=== PATIENT | male | born 2000 | race Caucasian/White ===

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

== ENCOUNTER 2024-06-18 17:21 | Emergency (ER) | payer MEDICAID, OTHER ==
[~2024-06-18] VITALS: Ht 182.9 cm; Wt 90.0 kg
[2024-06-18 18:10] LABS: Basophils # (auto) 0.1 10 ^3/uL (0-0.2); Basophils % (auto) 0.5 % (0.0-2.0); Eosinophils # (auto) 0.1 10 ^3/uL (0-0.8); Eosinophils % (auto) 1.1 % (0.0-7.0); Hematocrit 49.2 % (41.0-53.0); Hemoglobin 17.5 g/dL (13.5-17.5); Lymphocytes # (auto) 3.4 10 ^3/uL (0.4-5.4); Lymphocytes % (auto) 28.1 % (10.0-50.0); Mean Corpuscular Hemoglobin 31.1 pg (28.0-32.0); Mean Corpuscular Hgb Conc. 35.5 g/dL (32.0-36.0); Mean Corpuscular Volume 87.5 fL (80.0-100.0); Monocytes % (auto) 8.5 % (0.0-12.0); Neutrophils # (auto) 7.5 10 ^3/uL (1.6-8.6); Neutrophils % (auto) 61.8 % (37.0-80.0); Nucleated Red Blood Cells % 1.1 %; Platelet Count (auto) 407 10^3/uL (140-450); Red Blood Cells 5.63 10^6/uL (4.5-5.90); Red Cell Distribution Width 12.7 % (11.8-14.3); White Blood Cell 12.1 10^3/uL (4.4-10.8)
[2024-06-18 18:21] LABS: Sodium 139 mmol/L (136-145)
[2024-06-18 18:22] LABS: Anion Gap 13 (5-15); Calcium 10.1 mg/dL (8.7-10.4)
[2024-06-18 18:28] LABS: BUN/Creatinine Ratio 9.8 (10.0-20.0); Blood Urea Nitrogen 11 mg/dL (9-23)
[2024-06-18 18:31] LABS: Carbon Dioxide 18 mmol/L (20-31); Chloride 108 mmol/L (98-107); Glucose 130 mg/dL (74-106); Potassium 3.3 mmol/L (3.5-5.1)
[2024-06-18] MEDS: SODIUM CHLORIDE 0.9% 2,000 ML IV ONE (18:53)
[2024-06-18] MEDS: LORazepam 2MG/ML-1ML VIAL IV ONE (18:53)
[2024-06-18] MEDS: KETOROLAC TROMETH 30 MG/ML 1ML VIAL IV ONE (18:54)
--- NOTE | 2024-06-18 18:54 | DVH ---
EXAM: XR Chest, 1 View CLINICAL INDICATION: cp TECHNIQUE: Frontal view of the chest. COMPARISON: None FINDINGS: LUNGS AND PLEURAL SPACES: Unremarkable. No consolidation. No pneumothorax. HEART: Unremarkable. No cardiomegaly. MEDIASTINUM: Unremarkable. Normal mediastinal contour. BONES/JOINTS: Unremarkable. No acute fracture. OTHER FINDINGS: . None. IMPRESSION: No acute cardiopulmonary process.
[2024-06-18 18:56] VITALS: PULSE 105; RESP 18; O2SAT 99
--- NOTE | 2024-06-18 19:55 | ED.PDOC ---
HPI Comments 23-year-old male brought in by family complaining of chest pain that started 4 hours ago while he was sitting in class. Patient states the pain is pressure- like, localized to the left parasternal area, no particular exacerbating or alleviating factors, initially severe, now moderate. He denies any shortness a breath, nausea, vomiting, diaphoresis or edema. Patient admits to using methamphetamine yesterday. Chief Complaint: Chest Pain Time Seen by MD: 19:50 Primary Care Provider: BEULAH Gautam Notes: Nurses Notes, Medications, Allergies Allergies: Coded Allergies: NO KNOWN ALLERGIES (Unverified , 07/01/12) Home Meds No Active Prescriptions or Reported Meds Information Source: Patient Mode of Arrival: Ambulatory Severity: Moderate Timing: Hours Duration: Since onset, Hours Prehospital treatment: None Location: Chest (L) Radiation: No Radiation Quality: Pressure Onset: At Rest Cardiac Risk Factors: Drugs PE Risk Factors: None History of: None Associated Signs and Symptoms: Palpitations Past Medical History PAST MEDICAL HISTORY: Denies Surgical History: Denies all surgeries Family History Family History: Reviewed,noncontributory to illness, Unknown Social History Smoker: Non-Smoker Alcohol: Denies ETOH Use Drugs: Methamphetamine (used yesterday 06/17/24) Lives In: Home Constitutional: denies: chills, diaphoresis, fatigue, fever, malaise, sweats, weakness, others EENTM: denies: blurred vision, double vision, ear bleeding, ear discharge, ear drainage, ear pain, ear ringing, eye pain, eye redness, hearing loss, mouth pain, mouth swelling, nasal discharge, nose bleeding, nose congestion, nose pain, photophobia, tearing, throat pain, throat swelling, voice changes, others Respiratory: denies: cough, hemoptysis, orthopnea, SOB at rest, shortness of breath, SOB with excertion, stridor, wheezing, others Cardiovascular: reports: chest pain, palpitations; denies: dizzy spells, diaphoresis, Dyspnea on exertion, edema, irregular heart beat, left arm pain, lightheadedness, PND, syncope, others Gastrointestinal: denies: abdomen distended, abdominal pain, blood streaked bowels, constipated, diarrhea, dysphagia, difficulty swallowing, hematemesis, melena, nausea, poor appetite, poor fluid intake, rectal bleeding, rectal pain, vomiting, others Genitourinary: denies: burning, dysuria, flank pain, frequency, hematuria, incontinence, penile discharge, penile sore, pain, testicle pain, testicle swelling, urgency, others Neurological: denies: dizziness, fainting, headache, left sided numbness, left sided weakness, numbness, paresthesia, pre-existing deficit, right sided numbness, right sided weakness, seizure, speech problems, tingling, tremors, weakness, others Musculoskeletal: denies: back pain, gout, joint pain, joint swelling, muscle pain, muscle stiffness, neck pain, others Integumetry: denies: bruises, change in color, change in hair/nails, dryness, laceration, lesions, lumps, rash, wounds, others Allergic/Immunocompromised: denies: Difficulty Healing, Frequent Infections, Hives, Itching, others Hematologic/Lymphatic: denies: anemia, blood clots, easy bleeding, easy bruising, swollen glands, others Endocrine: denies: excessive hunger, excessive sweating, excessive thirst, excessive urination, flushing, intolerance to cold, intolerance to heat, unexplained weight gain, unexplained weight loss, others Psychiatric: denies: anxiety, bipolar disorder, depression, hopeless, panic disorder, schizophrenia, sleepless, suicidal, others All Other Systems: Reviewed and Negative Physical Exam General Appearance: Mild Distress HEENT: Other (Pupils and face symmetric. Moist mucous membranes.) Neck: Full Range of Motion, Normal Inspection Respiratory: Lungs Clear, No Accessory Muscle Use, No Respiratory Distress, Normal Breath Sounds Cardiovascular: No Edema, No JVD, Tachycardia Breast Exam: Deferred Gastrointestinal: Non Tender, Soft Genitalia: Deferred Pelvic: Deferred Rectal: Deferred Extremities: Normal inspection, Normal range of motion, Non-tender, No pedal edema Musculoskeletal : Apperance: Normal Neurologic: Alert (Oriented x4), Normal Affect, Other (Ambulatory without difficulty. Anxious.) Cerebellar Function: NOT DONE Reflexes: NOT DONE Skin: Dry, Normal Color, Warm Lymphatic: NOT DONE EKG EKG : Comments Sinus tach, rate 134, normal intervals, normal axis, normal QRS, nonspecific T changes. Was a procedure done? Was a procedure done?: No CP Differential Dx Differential Diagnosis: Angina, Anxiety / Panic Attack, Electrolyte Disorder, Heart Failure, Hyperventilation, [place] Differential Diagnosis: Aortic dissection, Chest Wall Pain, Esophageal re flux/spasm, Gastritis, Pericarditis, Pneumonia, Pneumothorax X-Ray, Labs, Meds, VS Vital Signs Date Time Temp Pulse Resp B/P (MAP) Pulse Ox O2 Delivery O2 Flow Rate FiO2 06/18/24 20:54 97.9 103 18 141/82 (101) 99 97.9 06/18/24 18:56 105 18 99 Room Air* 0 21 06/18/24 18:56 98.2 105 18 128/78 (95) 99 98.2 06/18/24 17:25 134 06/18/24 17:21 98.0 112 15 131/80 (97) 99 98.0 Lab Test 06/18/24 18:45 06/18/24 18:17 06/18/24 17:37 06/18/24 17:31 Range/Units Urine Color Yellow Yellow Urine Clarity Clear Clear Urine pH 7.0 5.0-9.0 Urine Specific [place] 1.022 1.001-1.035 Urine Protein Negative Negative Urine Ketones 2+ H Negative Urine Blood Negative Negative /uL Urine Nitrite Negative Negative Urine Bilirubin Negative Negative Urine Urobilinogen Normal Negative mg/dL Urine Leukocyte Esterase Negative Negative /uL Urine RBC <1 0 - 3 /hpf Urine Microscopic WBC 1 0-3 /HPF Urine Squamous Epithelial Cells None seen <5 /hpf Urine Transitional Epithelial Cells Few <2 /hpf Urine Bacteria None seen None Seen /hpf Urine Mucus Few None Seen Urine Glucose Normal Normal mg/dL Troponin I High Sensitivity 4 3 L </=54 ng/L White Blood Count 12.1 H 4.4-10.8 10^3/uL Red Blood Count 5.63 4.5-5.90 10^6/uL Hemoglobin 17.5 13.5-17.5 g/dL Hematocrit 49.2 41.0-53.0 % Mean Corpuscular Volume 87.5 80.0-100.0 fL Mean Corpuscular Hemoglobin 31.1 28.0-32.0 pg Mean Corpuscular Hemoglobin Concent 35.5 32.0-36.0 g/dL Red Cell Distribution Width 12.7 11.8-14.3 % Platelet Count 407 140-450 10^3/uL Mean Platelet Volume 7.7 6.9-10.8 fL Neutrophils (%) (Auto) 61.8 37.0-80.0 % Lymphocytes (%) (Auto) 28.1 10.0-50.0 % Monocytes (%) (Auto) 8.5 0.0-12.0 % Eosinophils (%) (Auto) 1.1 0.0-7.0 % Basophils (%) (Auto) 0.5 0.0-2.0 % Neutrophils # (Auto) 7.5 1.6-8.6 10 ^3/uL Lymphocytes # (Auto) 3.4 0.4-5.4 10 ^3/uL Monocytes # (Auto) 1.0 0-1.3 10 ^3/uL Eosinophils # (Auto) 0.1 0-0.8 10 ^3/uL Basophils # (Auto) 0.1 0-0.2 10 ^3/uL Nucleated Red Blood Cells 1.1 % Sodium Level 139 136-145 mmol/L Potassium Level 3.3 L 3.5-5.1 mmol/L Chloride Level 108 H 98-107 mmol/L Carbon Dioxide Level 18 L 20-31 mmol/L Anion Gap 13 5-15 Blood Urea Nitrogen 11 9-23 mg/dL Creatinine 1.12 0.700-1.30 mg/dL Glomerular Filtration Rate Calc 95 >90 mL/min BUN/Creatinine Ratio 9.8 L 10.0-20.0 Serum Glucose 130 H 74-106 mg/dL Calcium Level 10.1 8.7-10.4 mg/dL B-Type Natriuretic Peptide 2.10 0-100 pg/mL POC Glucose 134 H 70-106 mg/dl Current Medications Medications (Trade) Dose Ordered Sig/Terrance Route Start Time Stop Time Status Last Admin Sodium Chloride 2,000 ml @ 1,000 mls/hr Q2H ONCE IV 06/18/24 17:30 06/18/24 19:29 DC 06/18/24 18:53 Ketorolac Tromethamine (Toradol Injection) 30 mg ONCE ONCE IV 06/18/24 17:30 06/18/24 17:31 DC 06/18/24 18:54 Lorazepam (Ativan Inj) 1 mg ONCE ONCE IV 06/18/24 17:30 06/18/24 17:31 DC 06/18/24 18:53 Potassium Bicarbonate (Klor-Con/Ef) 50 meq ONCE ONCE PO 06/18/24 23:00 06/18/24 23:13 DC 06/18/24 23:26 PROCEDURE(s): CXRP - CHEST PORTABLE REASON: cp ORDER NUMBER(s): [id number], ACCESSION NUMBER(s): [id number] EXAM: XR Chest, 1 View CLINICAL INDICATION: cp TECHNIQUE: Frontal view of the chest. COMPARISON: None FINDINGS: LUNGS AND PLEURAL SPACES: Unremarkable. No consolidation. No pneumothorax. HEART: Unremarkable. No cardiomegaly. MEDIASTINUM: Unremarkable. Normal mediastinal contour. BONES/JOINTS: Unremarkable. No acute fracture. OTHER FINDINGS: . None. IMPRESSION: No acute cardiopulmonary process. X-Ray, Labs, Meds, VS Comment 23-year-old male with no significant past medical history presenting with chest pain and tachycardia after using meth yesterday Vitals remarkable for heart rate 112 Exam remarkable for tachycardia and anxiety Rhythm strip independently interpreted by me: Sinus tach, rate 134, no ectopy. Chest x-ray unremarkable CBC remarkable for WBC 12.1, basic metabolic panel remarkable for potassium 3.3, CO2 18, troponin negative x2, BNP normal, UA no infection Patient treated with the following in the ED: 2 L 0.9 normal saline IV bolus, Toradol 30 mg IV, Ativan 1 mg IV, potassium 50 mEq p.o. On re-evaluation, patient states pain has resolved. Heart rate is 108, other vitals were stable. Hospitalization was considered, however patient had rapid improvement of symptoms with treatment in the ED, and I no longer feel hospitalization is necessary. Patient now appears stable for discharge with close outpatient follow-up with his primary physician. Patient advised to stop using methamphetamine. Time of 1ST Reevaluation: 20:20 Reevaluation 1ST: Unchanged Time of 2ND Reevaluation: 22:55 Reevaluation 2ND: Improved Patient Education/Counseling: Diagnosis, Treatment, Prognosis Family Education/Counseling: No Family Present Departure 1 Departure Time of Disposition: 22:55 Impression: Primary Impression: Chest pain with low risk for cardiac etiology Additional Impressions: Tachycardia, unspecified Methamphetamine abuse Methamphetamine use Disposition: HOME / SELF CARE / HOMELESS Condition: Stable Additional Instructions: Your blood tests, including screening test for heart attack and heart failure were unremarkable except for low potassium. We have corrected this in the ER. Your chest x-ray was normal. Your EKG showed a rapid heart rate, which is poss ibly due to recent methamphetamine use. Follow-up with your primary doctor in 1-2 days for referral to a manager neonatal for further evaluation. Return to ER for persistent or worsening symptoms. e-Prescriptions No Active Prescriptions or Reported Meds Discharged With: Relative Critical Care Note Critical Care Time?: No Stability Stability form required: No Heart Score Heart Score: Heart Score Response (Comments) Value History Slightly Suspicious 0 EKG Repolarization Disturb 1 Age <45 0 Risk Factors No known risk factors 0 Troponin Normal limit 0 Total 1 I personally scribed for SEBASTIAN AGUILAR MD ([email or web address]) on 06/18/24 at 19:55. Electronically submitted by Enio Fountain ([email or web address]). I personally scribed for SEBASTIAN AGUILAR MD ([email or web address]) on 06/18/24 at 19:56. Electronically submitted by Enio Fountain ([email or web address]). SEBASTIAN AGUILAR MD Jun 18, 2024 19:55
[2024-06-18 20:54] VITALS: BP 141/82; PULSE 103; RESP 18; TEMP 97.9; O2SAT 99
[2024-06-18 22:38] LABS: Urine Bacteria None Seen /hpf (None Seen)
[2024-06-18 22:50] LABS: Urine Blood Negative /uL (Negative); Urine Clarity Clear (Clear); Urine Color Yellow (Yellow); Urine Mucus FEW (None Seen); Urine Protein, UAD Negative (Negative); Urine Specific Gravity 1.022 (1.001-1.035); Urine Squamous Epithelial Cell None Seen /hpf (<5); Urine Urobilinogen Normal (Negative); Urine WBC 1 /HPF (0-3)
[2024-06-18] MEDS: POTASSIUM EFFERVESENT TAB 25 MEQ PO ONE (23:26)
[2024-06-18] MEDS ORDERED: IBUP-1455 PO (23:35)
[2024-06-18] MEDS ORDERED: HYDR50TA32 PO (23:35)
--- NOTE | 2024-06-19 19:12 | ECG ---
[facility] Test Date: 2024-06-18 Test Time: 17:25:17 Pat Name: MARY WEINBERG Department: ED Room: Gender: M [employer] Tower Operator: ALYSE : 2000 Requested By: ALIS GRIFFITHS Order Number: [id number] Reading MD: Measurements Intervals [place] Rate: 134 P: 70 WV: 125 QRS: 111 QRSD: 88 T: -24 QT: 306 QTc: 457 Interpretive Statements Sinus tachycardia LAE, consider biatrial enlargement Probable RVH w/ secondary repol abnormality Probable inferior infarct, old Baseline wander in lead(s) I Please click the below link to view image of tracing.
== END 2024-06-18 23:58 | disposition home or self-care (01) ==
LOC: ER 17:21
DX: R07.89 Other chest pain (principal); F15.10 Other stimulant abuse, uncomplicated; R00.0 Tachycardia, unspecified; R06.02 Shortness of breath
CPT/HCPCS: 36415; 71045; 80048; 81001; 82947; 83880; 84484; 85025; 93005; 96361; 96374; 96375; 99285; J1885; J2060; J7030; 82962

== ENCOUNTER 2024-09-24 02:57 | Emergency (ER) | payer MEDICAID ==
[~2024-09-24] VITALS: Ht 182.9 cm; Wt 92.2 kg
[~2024-09-24 02:57] MED LIST: HYDR50TA32 PO; IBUP-1455 PO
[2024-09-24] MEDS: KETOROLAC TROMETH 60MG/2ML VIAL IM ONE (03:30)
--- NOTE | 2024-09-24 03:58 | DVH ---
INDICATION: S/P INJURY/PAIN COMPARISON: LUMBAR SPINE LTD on DOS: 12/10/19 TECHNIQUE: 2 views of the lumbar spine were obtained. FINDINGS: Minimal levoscoliosis has its apex about the L3 vertebral body. The lumbar vertebral alignment is oth erwise normal. The intervertebral disc spaces are well-maintained. No significant facet arthropathy is noted. No acute fracture, vertebral compression deformity or aggressive osseous lesions. The paravertebral soft tissues are grossly unremarkable. IMPRESSION: 1. No acute fracture. Minimal lumbar levoscoliosis.
--- NOTE | 2024-09-24 04:03 | ED.PDOC ---
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 Denies numbness, weakness, loss of bowel bladder control, or saddle anesthesia Chief Complaint: Back Pain Time Seen by MD: 02:59 Primary Care Provider: BEULAH Reviewed Notes: Nurses Notes, Medications, Allergies Allergies: Coded Allergies: NO KNOWN ALLERGIES (Unverified , 07/01/12) Home Meds Active Scripts Hydroxyzine HCl (Hydroxyzine Hydrochloride) 50 Mg Tab, 50 MG PO Q6HP PRN, #30 TAB prn anxiety Prov:SEBASTIAN AGUILAR MD 06/18/24 Ibuprofen Micronized (Ibuprofen) 800 Mg Tab, 800 MG PO Q8HP PRN, #30 TAB prn pain, take with food Prov:SEBASTIAN AGUILAR MD 06/18/24 Mode of Arrival: Ambulatory Past Medical History PAST MEDICAL HISTORY: Denies Surgical History: Denies all surgeries Family History Family History: Reviewed,noncontributory to illness, Unknown Social History Smoker: Non-Smoker Alcohol: Denies ETOH Use Drugs: Methamphetamine Lives In: Home Constitutional: denies: chills, diaphoresis, fatigue, fever, malaise, sweats, weakness, others EENTM: denies: blurred vision, double vision, ear bleeding, ear discharge, ear drainage, ear pain, ear ringing, eye pain, eye redness, hearing loss, mouth pain, mouth swelling, nasal discharge, nose bleeding, nose congestion, nose pain, photophobia, tearing, throat pain, throat swelling, voice changes, others Respiratory: denies: cough, hemoptysis, orthopnea, SOB at rest, shortness of breath, SOB with excertion, stridor, wheezing, others Gastrointestinal: denies: abdomen distended, abdominal pain, blood streaked bowels, constipated, diarrhea, dysphagia, difficulty swallowing, hematemesis, melena, nausea, poor appetite, poor fluid intake, rectal bleeding, rectal pain, vomiting, others Genitourinary: denies: burning, dysuria, flank pain, frequency, hematuria, incontinence, penile discharge, penile sore, pain, testicle pain, testicle swelling, urgency, others Neurological: denies: dizziness, fainting, headache, left sided numbness, left sided weakness, numbness, paresthesia, pre-existing deficit, right sided numbness, right sided weakness, seizure, speech problems, tingling, tremors, weakness, others Musculoskeletal: reports: back pain; denies: gout, joint pain, joint swelling, muscle pain, muscle stiffness, neck pain, others Integumetry: denies: bruises, change in color, change in hair/nails, dryness, laceration, lesions, lumps, rash, wounds, others Allergic/Immunocompromised: denies: Difficulty Healing, Frequent Infections, Hives, Itching, others Hematologic/Lymphatic: denies: anemia, blood clots, easy bleeding, easy bruising, swollen glands, others Endocrine: denies: excessive hunger, excessive sweating, excessive thirst, excessive urination, flushing, intolerance to cold, intolerance to heat, unexplained weight gain, unexplained weight loss, others Psychiatric: denies: anxiety, bipolar disorder, depression, hopeless, panic disorder, schizophrenia, sleepless, suicidal, others Physical Exam General Appearance: No Apparent Distress, Normal HEENT: Pharynx Normal Neck: Full Range of Motion Respiratory: Lungs Clear, No Respiratory Distress, Normal Breath Sounds Cardiovascular: No Murmur, Normal Peripheral Pulses, Regular Rate/Rhythm Breast Exam: Deferred Gastrointestinal: Non Tender, Soft Genitalia: Deferred Pelvic: Deferred Rectal: Deferred Extremities: Normal capillary refill, Normal range of motion, No pedal edema Musculoskeletal : Location: Bilateral Extremity Location: Back (Tenderness palpated over lower back musculature. L1 through L5 spine no crepitus or step-offs. Leg raise bilateral strength sensory motion intact positive pedal pulses) Apperance: Normal Neurologic: Alert, No Motor Deficits, Normal Affect, Normal Mood, No Sensory Deficits Cerebellar Function: Normal Reflexes: Normal Skin: Dry, Normal Color, Warm Lymphatic: No Adenopathy Was a procedure done? Was a procedure done?: No Back Pain Differential Dx Differential Diagnosis: Fracture, Musculoskeletal Pain X-Ray, Labs, Meds, VS Vital Signs Date Time Temp Pulse Resp B/P (MAP) Pulse Ox O2 Delivery O2 Flow Rate FiO2 09/24/24 02:57 98.3 54 18 131/60 100 98.3 X-Ray, Labs, Meds, VS Comment FINDINGS: Minimal levoscoliosis has its apex about the L3 vertebral body. The lumbar vertebral alignment is otherwise normal. The intervertebral disc spaces are well-maintained. No significant facet arthropathy is noted. No acute fracture, vertebral compression deformity or aggressive osseous lesions. The paravertebral soft tissues are grossly unremarkable. IMPRESSION: 1. No acute fracture. Minimal lumbar levoscolios Likely lumbar muscle strain. Patient given Toradol, Decadron, [place] reports improvement in pain and function requesting discharge at this time. Script trial of muscle relaxer and Medrol Dosepak. Take medications as prescribed side effects discussed. Advised on ice and heat. Follow up with your PCP in 2-3 days as necessary if no improvement consider MRI or physical therapy. ER return precautions given patient indicates understanding agrees with discharge plan of care. Time of 1ST Reevaluation: 03:05 Reevaluation 1ST: Unchanged Time of 2ND Reevaluation: 04:04 Reevaluation 2ND: Improved Patient Education/Counseling: Diagnosis, Treatment, Prognosis, Need For Follow Up Family Education/Counseling: No Family Present SEPSIS Sepsis Screen Date sepsis recognized/suspect: Sep 24, 2024 Time Sepsis recognized/suspect: 025 Recent Procedure: No On Antibiotic Therapy: No Respiratory Rate >20: No Heart Rate >90: No Temp<36 C (96.8 F) or >38.3 C: No SBP <90 or MAP <65 mmHG: No New Acute Mental Status Change: No Is the patient on CPAP, BIPAP,: No Physician Orders Lumbar Spine 3 View (09/24/24 03:21) Vital Signs Date Time Temp Pulse Resp B/P (MAP) Pulse Ox O2 Delivery O2 Flow Rate FiO2 09/24/24 02:57 98.3 54 18 131/60 100 98.3 Departure 1 Departure Time of Disposition: 04:04 Impression: Primary Impression: Lumbar sprain Qualified Codes: S33.5XXA - Sprain of ligaments of lumbar spine, initial encounter Disposition: HOME / SELF CARE / HOMELESS Condition: Stable e-Prescriptions Tizanidine Hydrochloride (Tizanidine Hcl) 4 Mg Tab 4 MG PO BID for 5 Days, #10 TAB Prov: LOW CORTEZ 09/24/24 Methylprednisolone (Medrol Dosepak) 4 Mg Ganesh 4 MG PO UD for 6 Days, #21 TAB UAD Prov: LOW CORTEZ 09/24/24 Discharged With: Self Critical Care Note Critical Care Time?: No Stability Stability form required: No LOW CORTEZ Sep 24, 2024 04:03
[2024-09-24] MEDS ORDERED: METH4PAK PO (04:06)
[2024-09-24] MEDS ORDERED: TIZA-142 PO (04:06)
[2024-09-24 04:44] VITALS: BP 104/46; PULSE 50; RESP 18; TEMP 98; O2SAT 98
[2024-09-24] MEDS: HYDROcodone-ACET 5/325MG TAB PO ONE (04:44)
== END 2024-09-24 04:47 | disposition home or self-care (01) ==
LOC: ER 02:57
DX: S33.5XXA Sprain of ligaments of lumbar spine, initial encounter (principal); X58.XXXA Exposure to other specified factors, initial encounter; Y93.89 Activity, other specified; Y92.89 Other specified places as the place of occurrence of the external cause; Y99.8 Other external cause status
CPT/HCPCS: 72100; 96372; 99284; J1100; J1885